=== PATIENT | female | born 1995 | race Two or more races ===

== ENCOUNTER 2019-11-17 19:53 | Emergency (ER) | payer MEDICAID ==
[~2019-11-17] VITALS: Ht 157.5 cm; Wt 54.4 kg
[2019-11-17] MEDS ORDERED: OLANZAPINE 10 MG VIAL IM ONE ×2 (20:00→20:06)
[2019-11-17] MEDS ORDERED: LORAZEPAM INJ 2 MG/ML VIAL IM ONE (20:00)
[2019-11-17] MEDS ORDERED: LORAZEPAM INJ 2 MG/ML VIAL ONE (20:07)
--- NOTE | 2019-11-17 20:08 | NUR ---
[employer] AT THE BED SIDE
--- NOTE | 2019-11-17 20:15 | NUR ---
[place] FOUND ON STRE[address]. TO ER BED 12. ALERT AND AWAKE. PT DOES NOT WANT TO COOPERATE, DENIES ANSWERING QUESTION AND UNABLE TO GET INFORMATION FROM PT. PER [employer] REPORT, PT WAS RUNNING ON THE STREET YELLING AND FONDLING HERSELF. POSSIBLE OVERDOSE BUT UNKNOWN SUBSTANCE. PT WAS PLACED ON RESTRAINT PER ORDERED. SLICK VILLANUEVA WAS AT BEDSIDE FOR EVAL. ORDERS RECEIVED
[2019-11-17 20:26] LABS: BASOPHILS % (AUTO) 0.3 % (0.0-2.0); EOSINOPHILS % (AUTO) 1.4 % (0.0-6.0); HEMATOCRIT 37 % (33-45); HEMOGLOBIN 12.1 g/dL (11.5-14.8); LYMPHOCYTES % (AUTO) 16.4 % (20.0-44.0); MEAN CORPUSCULAR HGB CONC 33 g/dl (31.0-36.0); MEAN CORPUSCULAR VOLUME 93 fL (82-100); MONOCYTES # (AUTO) 0.6 /CMM (0.1-1.30); MONOCYTES % (AUTO) 10.1 % (2.0-12.0); NEUTROPHILS # (AUTO) 4.5 /CMM (1.8-8.9); NEUTROPHILS % (AUTO) 71.8 % (43.0-81.0); PLATELET COUNT (AUTO) 289 /CMM (150-450); RED BLOOD CELL COUNT(AUTO) 3.96 MIL/uL (4.0-5.2); WHITE BLOOD COUNT (AUTO) 6.3 K/uL (4.3-11.0)
[2019-11-17 20:34] LABS: CALCIUM, SERUM 8.8 mg/dL (8.5-10.1); CARBON DIOXIDE 29 mmol/L (21-32); CHLORIDE 103 mmol/L (98-107); CREATININE 0.9 mg/dL (0.6-1.3); GLUCOSE 94 mg/dL (74-106); SODIUM SERUM 140 mmol/L (136-145); UREA NITROGEN, BLOOD 13 mg/dL (7-18)
[2019-11-17 20:39] LABS: ALANINE AMINOTRANSFERASE 24 U/L (12-78); ALBUMIN 3.8 g/dL (3.4-5.0); ALCOHOL, BLOOD < 3 mg/dL (0-0); ALKALINE PHOSPHATASE 79 U/L (46-116); ASPARTATE AMINOTRANSFERASE 21 U/L (15-37); BILIRUBIN,DIRECT 0.2 mg/dL (0.0-0.2); BILIRUBIN,TOTAL 0.6 mg/dL (0.2-1.0); TOTAL PROTEIN, SERUM 7.1 g/dL (6.4-8.2)
[2019-11-17 20:41] LABS: ACETAMINOPHEN < 2 ug/ml (10-30); SALICYLATE < 2.8 mg/dL (2.8-20.0)
--- NOTE | 2019-11-17 22:24 | NUR ---
URINE SENT TO LAB
[2019-11-17 22:31] LABS: APPEARANCE,URINE Clear (CLEAR); BILIRUBIN,URINE SMALL (NEGATIVE); BLOOD, URINE Trace-intact Ery/uL (NEGATIVE); COLOR,URINE Yellow (YELLOW); KETONES,URINE Negative (NEGATIVE); LEUKOCYTE ESTERASE ,URINE Negative (NEGATIVE); NITRITE, URINE Negative (NEGATIVE); PH,URINE 6.5 (5.0-8.0); PROTEIN,URINE 100 mg/dl (NEGATIVE); UGLUCOSE Negative (NEGATIVE)
[2019-11-17] MEDS ORDERED: POTASSIUM CHLORIDE 20 MEQ TAB.PRT.SR PO ONE (23:00)
[2019-11-17 23:33] LABS: BACTERIA,URINE Few /HPF (None Seen); SQUAMOUS EPITHELIAL CELL,UR Few /HPF (None Seen)
--- NOTE | 2019-11-18 00:22 | NUR ---
Patient is resting comfortably in bed with eyes closed. Easily aroused. VSS
[2019-11-18] MEDS ORDERED: POTASSIUM CHLORIDE 20 MEQ TAB.PRT.SR PO ONE (01:52)
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
--- NOTE | 2019-11-18 05:35 | NUR ---
PT AWAKE, STATED SHE WOULD LIKE TO GO TO [facility]
--- NOTE | 2019-11-18 06:32 | NUR ---
Patient is resting comfortably in bed with eyes closed. Easily aroused. VSS. SITTER STILL AT BEDSIDE. WILL CONTINUE TO MONITOR
--- NOTE | 2019-11-18 06:33 | NUR ---
CLINICAL INFORMATION STILL BEING REVIEWED BY [facility] AT THIS TIME
--- NOTE | 2019-11-18 06:36 | NUR ---
pt was assisted to the bathroom, took off the tampon and provided w/ clean underwear and pad.
--- NOTE | 2019-11-18 07:15 | NUR ---
Patient is resting comfortably in bed. Easily aroused. VSS.
--- NOTE | 2019-11-18 08:45 | NUR ---
FOLLOWED UP WITH [facility]. STILL REVIEWING CLINICALS, WILL CALL US BACK WHEN THEY HAVE AN UPDATE.
--- NOTE | 2019-11-18 10:14 | NUR ---
SPOKED TO [facility]. WILL CALL BACK FOR UPDATE.
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
--- NOTE | 2019-11-18 10:57 | NUR ---
CALL BACK FROM [facility], ACCEPTED BY DR ROSARIO AT [facility], REPORT TO BE CALLED AT [phone]. HOUSE ERIKA REYNOLDS WILL GIVE ROOM NUMBER WHEN WE CALL FOR REPORT
--- NOTE | 2019-11-18 18:57 | NUR ---
CALLED [facility] FOR TRANSPORT TO [facility]. ETA 30-45 MINUTES.
--- NOTE | 2019-11-18 21:54 | NUR ---
CLINICAL INFORMATION FAXED TO [facility] INTAKE FOR VOLUNTARY ADMISSION.
--- NOTE | 2019-11-18 22:15 | NUR ---
PT IN BED SLEEPING. NO DISTRESS NOTED
--- NOTE | 2019-11-19 02:15 | NUR ---
PATIENT IS AWAKE. PATIENT IS AAOX4. NO SOB. BREATHING EVENLY AND UNLABORED ON ROOM AIR. CONNECTED TO MONITOR. SITTER AT BEDSIDE.
--- NOTE | 2019-11-19 02:16 | NUR ---
PATIENT ASKED TO CHANGED PADS, PADS GIVEN.
--- NOTE | 2019-11-19 02:30 | NUR ---
ACCEPTED TO [facility]. DR. THOMPSON, DR. MUÑOZINTERNIST PHONE NUMBER TO GIVE REPORT: [phone]
--- NOTE | 2019-11-19 02:45 | NUR ---
REPORT GIVEN TO BYRON MONK AT ON LICENSE OF [facility].
--- NOTE | 2019-11-19 02:55 | NUR ---
[facility] CALLED FOR TRANSPORT RESERVATION # [id number]. WILL CALL BACK FOR ETA.
[2019-11-19 03:57] VITALS: BP 105/95
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
== END 2019-11-19 04:08 ==
LOC: ER 19:55 → EDBD 19:55 → ER 11-19 04:08
DX: F19.10 Other psychoactive substance abuse, uncomplicated (principal); R45.851 Suicidal ideations; E87.6 Hypokalemia; Z59.0 Homelessness
CPT/HCPCS: 36415; 70450; 80048; 80076; 80305; 80307; 80329; 81001; 84702; 84703; 85025; 96372 ×2; 99285; G0480; J2060; J3490; 81000-TC

== ENCOUNTER 2019-12-29 19:48 | Emergency (ER) | payer MEDICAID ==
[~2019-12-29] VITALS: Ht 165.1 cm; Wt 63.5 kg
--- NOTE | 2019-12-29 20:12 | NUR ---
BIBS TO ER BED 7. AAOX4. NOT IN RESP DISTRESS. AMBULATORY. CAME IN FOR R LATERAL THIGH PAIN S/P FALL X 1WEEK AGO. PT RATES PAIN 6/10 ACHING. ROM INTACT WITH ANY LIMITATION. NO NOTED SWELLING OR INJURY. SLICK BAE WAS AT BEDSIDE FOR EVAL. ORDERS RECEIVED, NOTED AND CARRIED OUT.
--- NOTE | 2019-12-29 21:34 | NUR ---
pt refused to have her vital signs taken for discharge
--- NOTE | 2019-12-29 21:35 | NUR ---
Patient discharged to home in stable condition. Written and verbal after care instructions given. Patient verbalizes understanding of instruction. Pt ambulatory with a steady gait. Pt refused to sign the discharge as well homeless waiver
[2019-12-29 21:38] VITALS: BP 121/72
== END 2019-12-29 21:39 | disposition home or self-care (01) ==
LOC: ER 19:53
DX: M79.651 Pain in right thigh (principal); Z59.0 Homelessness
CPT/HCPCS: 73552; 84703-TC